=== PATIENT | male | born 1995 | race Caucasian/White ===

== ENCOUNTER 2019-07-15 09:25 | Emergency (ER) | payer SELFPAY ==
[~2019-07-15] VITALS: Ht 188 cm; Wt 94.9 kg
[2019-07-15 09:36] VITALS: BP 129/68
--- NOTE | 2019-07-15 09:58 | NUR ---
PT WALKED BACK FROM LOBBY TO ROOM AT THIS TIME. STEADY UPON AMBULATION.
== END 2019-07-15 11:19 | disposition home or self-care (01) ==
LOC: ED 11:07
DX: J02.8 Acute pharyngitis due to other specified organisms (principal); B97.89 Other viral agents as the cause of diseases classified elsewhere
CPT/HCPCS: 87081; 87880; 99283